=== PATIENT | female | born 1985 | race Two or more races ===

== ENCOUNTER 2019-11-13 09:06 | Outpatient (CLI) | payer OTHER, BC, SELFPAY ==
[2019-11-13 09:49] LABS: Alanine Aminotransferase 12 U/L (4-35); Albumin Level 4.1 g/dL (3.5-5.1); Alkaline Phosphatase 80 U/L (38-126); Aspartate Amino Transferase 20 U/L (14-36); Bilirubin,Total 0.4 mg/dL (0.2-1.3); Blood Urea Nitrogen 15 mg/dL (7-17); Calcium 8.9 mg/dL (8.4-10.2); Carbon Dioxide 27 mmol/L (22-30); Chloride 97 mmol/L (98-107); Cholesterol 169 mg/dL (0-200); Estimated Glomerular Filt Rate > 60; Glucose 95 mg/dL (65-105); HDL Direct 58 mg/dL; Potassium 4.1 mmol/L (3.4-5.0); Sodium 135 mmol/L (137-145); Triglycerides 81 mg/dL (<150)
[2019-11-13 09:50] LABS: Add Urine Microscopic? YES; Appearance Urine Clear (Clear); Bilirubin Urine Negative (Negative); Blood Urine 2+ (Negative); Color Urine Yellow (Yellow); Glucose Urine UA Negative (Negative); Ketones Urine Negative (Negative); Leukocyte Esterase Ur Negative LEU/UL (Negative); Mucus Urine Rare /lpf; Nitrate Urine Negative (Negative); Protein Urine Negative (Negative); Specific Grav Ur 1.018 (1.001-1.035); Squamous Epithelial Cell Urine Many /hpf (Few); Urobilinogen Urine Negative mg/dL (<2.0); WBC Urine 0-3 /hpf
[2019-11-13 10:00] LABS: LDL Cholesterol Direct 88 mg/dL
[2019-11-13 10:20] LABS: Thyroid Stimulating Hormone 0.192 uIU/mL (0.465-4.680)
[2019-11-13 10:56] LABS: Folic Acid > 20.0 ng/mL (2.76->20)
[2019-11-13 11:54] LABS: Iron 87 ug/dL (37-170)
[2019-11-13 12:04] LABS: Percent Iron Saturation 21 % (20-50)
[2019-11-13 14:16] LABS: Vitamin D 25 Hydroxy 32.5 ng/mL
== END 2019-11-13 09:07 | disposition home or self-care (01) ==
PROVIDERS: PCP Family Medicine; Visit Provider Physician Assistant
DX: Z00.00 Encounter for general adult medical examination without abnormal findings (principal); R22.1 Localized swelling, mass and lump, neck; E55.9 Vitamin D deficiency, unspecified
CPT/HCPCS: 36415; 80053; 80061; 81001; 82306; 82607; 82746; 83540; 83550; 84443